=== PATIENT | male | born 1985 | race Caucasian/White ===

== ENCOUNTER 2016-09-09 20:09 | Emergency (ER) | payer SELFPAY ==
[2016-09-09 23:46] VITALS: BP 126/67
== END 2016-09-09 23:46 | disposition home or self-care (01) ==
LOC: ED 20:09
DX: S82.002A Unspecified fracture of left patella, initial encounter for closed fracture (principal); W17.89XA Other fall from one level to another, initial encounter; Y93.89 Activity, other specified; Y99.8 Other external cause status; Y92.89 Other specified places as the place of occurrence of the external cause
CPT/HCPCS: 90715; J2270; Q0092

== ENCOUNTER 2016-09-21 05:56 | Emergency (ER) | payer SELFPAY ==
[2016-09-21 06:33] LABS: BASOPHIL % 0.4 % (0-2); CALCIUM 9.9 mg/dL (8.5-10.1); CARBON DIOXIDE 18.9 mmol/L (21-32); CHLORIDE SERUM 104 mmol/L (98-107); CREATININE SERUM 1.4 mg/dL (0.7-1.3); GFR1 > 60 mL/min; GLUCOSE SERUM 183 mg/dL (74-106); PLATELET COUNT 338 x10^3mcL (130-400); RED CELL DISTRIBUTION WIDTH 12.9 % (11.5-14.5); SODIUM SERUM 140 mmol/L (136-145)
[2016-09-21 06:43] LABS: ALBUMIN 4.3 g/dL (3.4-5.0); ALKALINE PHOSPHATASE 66 U/L (46-116); ALT/SGPT 31 U/L (16-63); AST/SGOT 16 U/L (15-37); BILIRUBIN TOTAL 0.8 mg/dL (0.20-1.00); LIPASE 87 IU/L (73-393)
[2016-09-21 06:47] LABS: TOTAL PROTEIN, SERUM 8.6 g/dL (6.4-8.2)
[2016-09-21 08:51] VITALS: BP 123/63
== END 2016-09-21 08:51 | disposition home or self-care (01) ==
LOC: ED 05:56
PROVIDERS: Emergency Medicine
DX: R10.9 Unspecified abdominal pain (principal); R11.2 Nausea with vomiting, unspecified; R03.0 Elevated blood-pressure reading, without diagnosis of hypertension; E86.0 Dehydration; F12.929 Cannabis use, unspecified with intoxication, unspecified
CPT/HCPCS: J1200; J2405; J2765; J3010; J7030

== ENCOUNTER 2019-05-29 05:44 | Emergency (ER) | payer OTHER ==
[~2019-05-29] VITALS: Ht 177.8 cm; Wt 89.4 kg
[2019-05-29 05:50] VITALS: Ht 177.8 cm; Wt 89.4 kg
[2019-05-29 07:51] LABS: microscopic required? NO
[2019-05-29 08:11] LABS: urine erythrocyte NEGATIVE (NEGATIVE)
[2019-05-29 08:40] VITALS: BP 116/56
== END 2019-05-29 08:40 | disposition home or self-care (01) ==
LOC: ED 05:44
PROVIDERS: Emergency Medicine
DX: R10.31 Right lower quadrant pain (principal); R10.33 Periumbilical pain; R11.0 Nausea; M51.86 Other intervertebral disc disorders, lumbar region; Z98.890 Other specified postprocedural states